=== PATIENT | female | born 1990 | race Caucasian/White ===

== ENCOUNTER 2016-11-20 08:58 | Emergency (ER) | payer MEDICAID, SELFPAY ==
--- NOTE | 2016-11-20 09:13 | OBHP ---
Datetime: 11/20/2016 09:11 IP Adm Impression: , intrauterine Admit Comment, IP Provider: at 23weeks came with c/o abdominnal pain started yesterday night, n o pain now, no dysuria obhx 1 x sab pmh de med pnv all nkd psh de soch den ve closed a/p at 24weeks r/o uti ua cont leidy and efm cont close observ Pelvic Type - PN: Adequate Extremities - PN: Normal Abdomen - PN: Normal Back - PN: Normal Breast - PN: Normal Lungs - PN: Normal Heart - PN: Normal Thyroid - PN: Normal Neurologic - PN: Normal HEENT - PN: Normal General - PN: Normal FHR - Baseline A Provider: 140 Contraction Comments Provider: none Vital Signs Provider: Reviewed; Within Normal Limits IP Chief Complaint: Maternal discomfort NICHD Variability Prov Fetus A: Moderate 6-25bpm Dilatation, Provider: 0 Effacement, Provider: 0 Station, Provider: -3 Genitourinary Exam: Normal DTRs - PN: Normal
[2016-11-20 09:14] VITALS: BMI 26.3
[2016-11-20 09:48] LABS: RBC URINE < 1 /hpf (0-3); URINE BILIRUBIN NEGATIVE (NEGATIVE); URINE BLOOD NEGATIVE (NEGATIVE); URINE COLOR Yellow (YELLOW); URINE GLUCOSE (UA) NORMAL (Normal); URINE KETONE NEGATIVE (NEGATIVE); URINE LEUKOCYTE ESTERASE NEG Leu/uL (Negative); URINE PROTEIN NEGATIVE (NEGATIVE); URINE UROBILINOGEN NORMAL mg/dL (0.2-1.0); WBC URINE 1 /hpf (0-5)
--- NOTE | 2016-11-20 10:31 | OBDCSUM ---
Datetime: 11/20/2016 10:30 Discharged to, Provider: Home Follow up at, Provider: as schuled Follow up in weeks, Provider: clinic Discharge Comment, Provider: dc home ptl given po hyration f/u in clinic as schuled Discharge Diagnosis Prov Other: 24weeks
--- NOTE | 2016-11-20 10:32 | OBHP ---
Datetime: 11/20/2016 09:11 Admit Comment, IP Provider: at 23weeks came with c/o abdominnal pain started yesterday night, n o pain now, no dysuria obhx 1 x sab pmh de med pnv all nkd psh de soch den ve closed a/p at 24weeks r/o uti ua cont leidy and efm cont close observ pt was seen at bed side.feels ok ua neg plan dc home ptl given po hyration f/u in clinic as schuled
== END 2016-11-20 10:37 | disposition home or self-care (01) ==
LOC: C.EROB 08:58
DX: O26.892 Other specified pregnancy related conditions, second trimester (principal); R10.9 Unspecified abdominal pain; Z3A.23 23 weeks gestation of pregnancy

== ENCOUNTER 2017-02-18 09:30 | Emergency (ER) | payer MEDICAID, OTHER ==
--- NOTE | 2017-02-19 12:40 | OBHP ---
Datetime: 02/18/2017 23:04 IP Adm Impression: Term, intrauterine ; No Active Labor; Intact Membranes IP Admit Plan: Discharge home Admit Comment, IP Provider: 26 y.o. LMP 05/24/16, JOSE RAFAEL 02/28/17, EGA 38w 5d c/o LLQ pain, onset 2029 ho urs 02/17/17, pain scale 3/10; pain now 10 - came in for evaluation. (+) AFM; denies LOF, VB. Prena shilpi care: [facility]; GBS (+); no other issues P Ob: 2016, Spont ab at approx 2 months. 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 No h/o STIs PMH: denies PSH: D_C NKDA Meds: drinking ensure TID since early , due to inability to tolerate PNV Soc Hx: denies tobacco, illicit drug or EtOH use. x 2 years. Unemployed. Lives with herbert reed Fam Hx: Mother alive 58 y.o. HTN, DM.. Father alive 45 y.o. no med issues No fam h/o Cancer P.E.: as above. WD in NAD. Awake, alert, oriented to time, person and place. Pleasant and coopera tive Assessment: 26 yo P0010, 38w 4d false labor. Category 1 traicng. Clinically stable. Plan: 1) discharge home 2) reviewed S/S labor 3) Keep next scheduled clinic appointment, 02/24/17 Pelvic Type - PN: Adequate Extremities - PN: Normal Abdomen - PN: Normal Back - PN: Normal Breast - PN: Not Done Lungs - PN: Normal Heart - PN: Normal Thyroid - PN: Not Done Neurologic - PN: Normal HEENT - PN: Normal General - PN: Normal Presentation-Admit: Vertex FHR - Baseline A Provider: 145 Membranes, Provider: Intact Contraction Comments Provider: sporadic Comments, ACOG Physical Exam: Abdomen: Soft. non tender in all quadrants. Gravid. Fundal heigh 38 cm All other systems reviewed and are negative Gestation - Est Wks by US: 38w 4d IP Hx Assessment: The History has been Reviewed and is Current EGA AdmitDate IP: 38.4 Vital Signs Provider: Reviewed IP Chief Complaint: Maternal discomfort NICHD Variability Prov Fetus A: Moderate 6-25bpm NICHD Accel Fetus A IP Provider: 15X15 NICHD Decel Fetus A IP Provider: None Dilatation, Provider: 1-2 Effacement, Provider: 20 Station, Provider: -3 Genitourinary Exam: Normal DTRs - PN: Not Done
[2017-02-19 16:41] VITALS: BP 107/66; PULSE 89; TEMP 98; O2SAT 98
== END 2017-02-18 10:10 | disposition home or self-care (01) ==
LOC: C.EROB 09:30
DX: O47.1 False labor at or after 37 completed weeks of gestation (principal); Z3A.38 38 weeks gestation of pregnancy

== ENCOUNTER 2017-03-08 07:35 | Inpatient (IN) | payer OTHER ==
[2017-03-08] MEDS ORDERED: Penicillin G 5 Million Unit Vial IVPB ONE (18:06)
[2017-03-08] MEDS ORDERED: Lactated Ringer's 1,000 ML IV SCH (18:15)
[2017-03-08 18:40] LABS: BASO % 0.3 % (0.0-2.0); EOS # 0.1 K/uL (0.0-0.7); EOS % 0.7 % (0.0-4.0); HEMATOCRIT 32.2 % (34.0-47.0); LYMPH # 1.9 K/uL (1.0-4.3); LYMPH % 20.1 % (20.0-40.0); MEAN CELL VOLUME 86.4 fL (81.0-99.0); MEAN CORPUSCULAR HEMOGLOBIN 27.9 pg (27.0-31.0); MEAN CORPUSCULAR HGB CONC 32.3 g/dL (33.0-37.0); MEAN PLATELET VOLUME 8.6 fL (7.2-11.7); MONO # 0.7 K/uL (0.0-0.8); MONO % 7.6 % (0.0-10.0); NRBC % 0.1 % (0.0-2.0); RED CELL DISTRIBUTION WIDTH 15.9 % (11.5-14.5); WHITE BLOOD COUNT 9.6 K/uL (4.8-10.8)
[2017-03-08 18:51] LABS: URINE BACTERIA RARE (<OCC); URINE BILIRUBIN NEGATIVE (NEGATIVE); URINE BLOOD NEGATIVE (NEGATIVE); URINE COLOR Colorless (YELLOW); URINE GLUCOSE (UA) NORMAL (Normal); URINE KETONE NEGATIVE (NEGATIVE); URINE LEUKOCYTE ESTERASE NEG Leu/uL (Negative); URINE PROTEIN NEGATIVE (NEGATIVE); URINE UROBILINOGEN NORMAL mg/dL (0.2-1.0); WBC URINE 1 /hpf (0-5)
--- NOTE | 2017-03-08 19:11 | OBADHP ---
Datetime: 03/08/2017 18:33 IP Admit Plan Other: Cervical ripening; GBS positive Admit Comment, IP Provider: Patient is a 26 year old at 41 weeks and 1 day by LMP 05/24/2016 with JOSE RAFAEL 02/28/2017, who presents today for induction of labor. Patient denies contraction, leakage of fluids, vaginal bleeding/abnormal vaginal discharge and urinary symptoms. Endorse (+) movement . Patient has no complaints at this time. 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 Lives with her and is a house wif e Family Hx: Mother: HTN and DM; age 53; Father age 41 healthy. Denies history of cancer, stroke or cardiac events P.E: See above A/P: 26 year old at 41 weeks 1 day presents for induction of labor secondary to post dates 1. Stable, afebrile 2. Admit to L _ D 3. Admission Labs: CBC, CMP, Type and screen, RPR, UA 4. Lactate ringers at 125mls/hr 5. NPO 6. GBS (+): Pen G 5mu IV once. Pen G 2.5 mu IV q4 until delivery 7. Cervical ripening agent: Cytotec 50mcg PO Q4 8. Continuous external monitoring and toco 9. Epidural upon request 11. Varicella non-immune: will need varivax vaccine post- 12. Anticipate vaginal delivery 11. Plan discuss with attending Kristy Alejandre, PGY-1 Attending attestation - Patient seen, evaluated and examined with me by the Resident. I agree with the H_P, assessment and plan. Category 1 tracing. Clarification re: care = [facility]; no issues. It was d iscussed with patient cervical ripening, and possible pitocin as indicated. Patient inquired about ep idural: risks, benefits discussed - patient will consider. Patient offered no other questions. Clin ically stable. FHR - Baseline A Provider: 160 Contraction Comments Provider: irregular Comments, ACOG Physical Exam: Vital Signs: 108/51 74 Gen: NAD, AA0X3 Cardio: RRR, Normal +S1, S2, No murmurs Lungs: CTA bilaterally, no rales, no crackles Abdomen: Soft, gravid, fundal height at 42cm Extremities: No clubbing, cyanosis or edema SVE: /-3 Labs A positive Rubella immune RPR: Non-reactive Varicella: Non-immune GC/CT: Negative Hep BSAg: Negative HIV: Non-reactive 1HR GCT: 113 GBS: + Imaging: Last ultrasound (01/04/17): Single IUP. Placenta posterior, cephalic presentation. ALEXANDRO: 15CM. EFW: 4LBS 1OZ Vital Signs Provider: Reviewed; Within Normal Limits IP Chief Complaint: Scheduled induction of labor NICHD Variability Prov Fetus A: Moderate 6-25bpm NICHD Accel Fetus A IP Provider: 15X15 NICHD Decel Fetus A IP Provider: None Dilatation, Provider: 2 Effacement, Provider: 30 Station, Provider: -3 EGA AdmitDate IP: 41.1 IP Adm Impression: Postterm, intrauterine ; No Active Labor IP Admit Plan: Admit to unit Datetime: 02/18/2017 23:04 Pelvic Type - PN: Adequate Extremities - PN: Normal Abdomen - PN: Normal Back - PN: Normal Breast - PN: Not Done Lungs - PN: Normal Heart - PN: Normal Thyroid - PN: Not Done Neurologic - PN: Normal HEENT - PN: Normal General - PN: Normal Presentation-Admit: Vertex Membranes, Provider: Intact Gestation - Est Wks by US: 38w 4d IP Hx Assessment: The History has been Reviewed and is Current Genitourinary Exam: Normal DTRs - PN: Not Done
[2017-03-08 21:44] LABS: CHLORIDE 109 mmol/L (98-107)
[2017-03-08 21:45] LABS: SODIUM 139 mmol/L (132-148)
[2017-03-08 21:47] LABS: BILIRUBIN,TOTAL 0.4 mg/dL (0.2-1.3); CARBON DIOXIDE 22 mmol/L (22-30); GFR AFRICAN-AMERICAN > 60
[2017-03-08 21:48] LABS: ALKALINE PHOSPHATASE 154 U/L (38-126); ALT/SGPT 19 U/L (9-52); AST/SGOT 17 U/L (14-36); BLOOD UREA NITROGEN 8 mg/dL (7-17); GLUCOSE,RANDOM 97 mg/dL (65-105); TOTAL PROTEIN 6.2 g/dL (6.3-8.3)
--- NOTE | 2017-03-08 23:09 | OBPN ---
Datetime: 03/08/2017 22:48 Membranes, Provider: Intact Contraction Comments Provider: infrequent FHR - Baseline A Provider: 150 Gestation - Est Wks by US: 41w 1d IP Progress Note Comment: FHR tracing noted for change in baseline to 180 bpm since approximately 19 35 hours. Intrauterine resuscitationmeasures implemented: IVFs, lateral positioning of mother and oxy gen by face mask. After approximately 2 hours, FHR returned to 150 bpm: observed x 45 minutes. At th is time, decision made to proceed with mechanical cervical ripening using the Carbonated Content intracervical ripe marielos balloon. Same inserted under sterile conditions and without incident Assessment: 28 y.o. P1011, 41w 1d, IOL. tachycardia versus recurrent prolonged accelerations resolved. GBS (+); will start penicillin when balloon falls (usually at apporximately 4 cm). Also, will start pitocin at time of balloon falling out. Patient is clinically stable Plan: 1) As above. 2) Anticipate vaginal delivery NICHD Accel Fetus A IP Provider: 15X15 FHR Category Provider Fetus A: Category I NICHD Variability Prov Fetus A: Moderate 6-25bpm Dilatation, Provider: 2 Effacement, Provider: 30 Station, Provider: -3 NICHD Decel Fetus A IP Provider: None Datetime: 03/08/2017 18:33 Vital Signs Provider: Reviewed; Within Normal Limits Datetime: 02/18/2017 23:04 Presentation-Admit: Vertex
[2017-03-09] MEDS ORDERED: Oxytocin 30 UNIT 30 UNITS/500 ML BAG IV PRN (00:18)
[2017-03-09] MEDS ORDERED: Oxytocin 30 UNIT 30 UNITS/500 ML BAG IV ONE (01:14)
[2017-03-09] MEDS ORDERED: Penicillin G 5 Million Unit Vial IVPB ONE (06:26)
--- NOTE | 2017-03-09 08:26 | OBPN ---
Datetime: 03/09/2017 08:21 IP Progress Impression: Reassuring heart rate IP Progress Plan: Continue present management Contraction Comments Provider: irregular Gestation - Est Wks by US: 41.2 Weight - Estimated: 3200 IP Progress Note Comment: S-patient states that she is feeling the contractions but they are tolerab le O-VSS Afebrl FHT cat1 [place] irregular ctx sve 5/80/-2 A/P Patient being induced forpostdates.GBS positive -continue pit per protocol -monitor closely Vital Signs Provider: Reviewed FHR Category Provider Fetus A: Category I Dilatation, Provider: 5 Effacement, Provider: 80 Station, Provider: -2
[2017-03-09] MEDS ORDERED: Bupivacaine 0.25% Inj(30mL) ONE (08:56)
[2017-03-09] MEDS ORDERED: Bupivacaine 0.125%/FentaNYL 200 ML EPI ONE (08:56)
--- NOTE | 2017-03-09 11:59 | OBPN ---
Datetime: 03/09/2017 11:56 IP Procedures: Artificial ROM; Scalp Electrode IP Progress Plan: Continue present management Contraction Comments Provider: irregular FHR - Baseline A Provider: 150 IP Progress Note Comment: S-patient comfortable with epidural FHT 150s, mod enrique, ovv variables [place] irregular ctx sve 9/100/-2 A/P Patient being induced for post dates -arom done.clear fluid -continue to monitor closel Vital Signs Provider: Reviewed; Within Normal Limits NICHD Accel Fetus A IP Provider: 15X15 NICHD Variability Prov Fetus A: Moderate 6-25bpm Dilatation, Provider: 9 Effacement, Provider: 100 Station, Provider: -2 NICHD Decel Fetus A IP Provider: Variable
[2017-03-09] MEDS ORDERED: Lidocaine 2% Inj (20ml) ONE (12:25)
[2017-03-09] MEDS ORDERED: Dextrose 5%/Lactated Ringer's 1,000 ML IV SCH (15:00)
[2017-03-09] MEDS ORDERED: Benzocaine/Menthol 20%-0.5% Topical Spray (60 ml) TOP PRN (15:46)
[2017-03-09] MEDS ORDERED: Oxycodone/Acetaminophen 5/325 mg Tab PO PRN ×2 (15:47→15:48)
--- NOTE | 2017-03-09 16:03 | OBDS ---
DELIVERY PERSONNEL Delivery Doctor: Nikkie Pittman MD Track Laborer: Edna Monae RN/Cedrick BREEN Anesthesiologist: Resident: Donna Wilde PGY1 MATERNAL INFORMATION Delivery Anesthesia: Epidural Medications in Delivery: Pitocin 20 units IV; Lidocain 2% Estimated Blood Loss (ml): 300 Placenta Cultured: No Maternal Complications: None RN Comments: Liveborn Baby Girl. 9-9 Provider Comments: Patient psuhing.Median episiotomy given. of a female from CHELSIE position. Body and shoulders delivered without difficulty.Cord clamped and cut.Cord blood collected.Placenta s pontaneously delivered.Episiotomy repiared with 2-0 chromic.PatIent stable.Fundus firm.EBL 300CC. Apgars 9/9 at 1 and 5min of life LABOR SUMMARY EDC: 02/28/2017 00:00 No. Babies in Womb: 1 Attempted: Yes Labor Anesthesia: Epidural LABOR INFORMATION Reason for Induction: Postterm Onset of Labor: 03/09/2017 07:30 Complete Dilatation: 03/09/2017 13:49 Cervical Ripening Agents: Muñoz Balloon Oxytocin: Induction Group B Beta Strep: Positive Antibiotics # of Doses: 3 Antibiotics Time of Last Dose: Pen G 2.5 MU IV@ 1350 Steroids Given: None Reason Steroids Not Administered: Not Applicable MEMBRANES Membranes Rupture Method: Artificial Rupture of Membranes: 03/09/2017 11:54 Length of Rupture (hrs): 3.68 Amniotic Fluid Color: Clear Amniotic Fluid Amount: Moderate Amniotic Fluid Odor: Normal STAGES OF LABOR Stage 1 hrs: 6 Stage 1 min: 19 Stage 2 hrs: 1 Stage 2 min: 46 Stage 3 hrs: 0 Stage 3 min: 15 Total Time in Labor hrs: 8 Total Time in Labor min: 20 VAGINAL DELIVERY Episiotomy: Median Laceration Extension: N/A Laceration Type: None Laceration Repair: Yes Initial Vag Sponge Count: 10 Initial Vag Sharps Count: 2 Sponge Count Correct: Yes; Vaginal Sweep Performed Sharps Count Correct: Yes Count Comment: with 1 needle for drawing BABY A INFORMATION Infant Delivery Date/Time: 03/09/2017 15:35 Method of Delivery: Vaginal Born in Route : No : N/A Forceps: N/A Vacuum Extraction: N/A Shoulder Dystocia : No SHOULDER DYSTOCIA BABY A Infant Delivery Date/Time: 03/09/2017 15:35 PRESENTATION/POSITION BABY A Presentation: Cephalic Cephalic Presentation: Vertex Vertex Position: Left Occipital Anterior Breech Presentation: N/A PLACENTA INFORMATION BABY A Placenta Delivery Time : 03/09/2017 15:50 Placenta Method of Delivery: Spontaneous Placenta Status: Delivered SCORES BABY A Heart Rate 1 min: >100 bpm Resp Effort 1 min: Good Cry Reflex Irritability 1 min: Cough or Sneeze or Pulls Away Muscle Tone 1 min: Active Motion Color 1 min: Body [place], Extremities Blue Resuscitation Effort 1 min: N/A SCORE 1 MIN: 9 Heart Rate 5 min: >100 bpm Resp Effort 5 min: Good Cry Reflex Irritability 5 min: Cough or Sneeze or Pulls Away Muscle Tone 5 min: Active Motion Color 5 min: Body [place], Extremities Blue Resuscitation Effort 5 min: N/A SCORE 5 MIN: 9 INFORMATION BABY A Gestational Age at Delivery: 41.2 Gestational Status: Post-term Outcome : Liveborn Condition : Stable Infant Sex: Female IDENTIFICATION/MEDS BABY A ID Band Number: [id number] Sensor Number: [id number] WEIGHT/LENGTH BABY A Infant Birthweight (gms): 3790 Infant Weight (lb): 8 Infant Weight (oz): 6 Length Inches: 20.00 Length cms: 50.8 CORD INFORMATION BABY A No. Cord Vessels: 3 Nuchal Cord : N/A Cord Blood Taken: Yes Suction: Mouth; Nose ASSESSMENT BABY A Complications: None Physical Findings at Delivery: Molding of the Head Respirations: Appears Normal Identification Clerk/ALS Called : No Care By: Transferred To: Nursery
[2017-03-10 08:12] LABS: BASO % 0.2 % (0.0-2.0); EOS % 0.3 % (0.0-4.0); HEMATOCRIT 26.5 % (34.0-47.0); LYMPH # 1.9 K/uL (1.0-4.3); LYMPH % 11.7 % (20.0-40.0); MEAN CELL VOLUME 86.6 fL (81.0-99.0); MEAN CORPUSCULAR HEMOGLOBIN 28.5 pg (27.0-31.0); MEAN CORPUSCULAR HGB CONC 32.9 g/dL (33.0-37.0); MEAN PLATELET VOLUME 8.8 fL (7.2-11.7); MONO # 1.4 K/uL (0.0-0.8); MONO % 8.4 % (0.0-10.0); RED CELL DISTRIBUTION WIDTH 15.8 % (11.5-14.5); WHITE BLOOD COUNT 16.2 K/uL (4.8-10.8)
--- NOTE | 2017-03-10 09:32 | OBPPN ---
Datetime: 03/10/2017 07:48 PP Pain Prov: Within normal limits PP Nausea Prov: Denies PP Flatus Prov: Yes PP BM Prov: Yes PP Abdomen/Uterus Prov: Normal PP Lochia Prov: Normal PP Extremities Prov: Normal PP Comments Phys Exam Prov: fudus below umblicus ext no edema,no calf ten PP Impression Prov: Normal progression PP Plan Prov: Continue present management PP Progress Note Prov: Patient was seen and examined at bedside. As per nursing, patient had no acut e issues overnight. Patient reports that she is doing well and pain is well-controlled. Patient is am bulating and tolerating diet. Patient reports moderate lochia, BM and urinating without difficulty. P atient denies fever, chills, nausea, vomiting, headache, chest pain, SOB, palpitations, dizziness, li ghtheadness and calf tenderness. Patient is breast and bottle feeding. Vital Signs: T: 97.1, BP: 99/69, HR: 81, RR: 18, O2: 99% RA Physical Examination: Gen: NAD, AAOX3 Cardio: RRR, normal S1, S2 Lungs: CTA bilaterally, no rales, no crackles Abd: Soft, appropriately tender, fundus firm at umbilicus Ext: No edema, clubbing or cyanosis. No calf tenderness Labs: 16.2>8.7/26.5>240 F/U am CBC A positive, Rubella immune A/P: 26 yo at 41w2d S/P with median episiotomy PPD # 1 1. Stable, Afebrile 2. Pain control prn 3. F/u AM CBC 4. Encourage ambulation and hydration 5. Encourage breast feeding 6. Continue routine care 7. Anticipate discharge tomorrow 8. Plan discussed with attending Donna Wilde DO PGY-1 Attending note. agrees with above Vital Signs Provider PP: Reviewed; Within Normal Limits
[2017-03-11 17:45] VITALS: BP 112/70; PULSE 72; RESP 18; TEMP 97.2; O2SAT 98
--- NOTE | 2017-03-11 23:07 | OBDCSUM ---
Datetime: 03/11/2017 10:28 Discharge Diagnosis Prov Other: Discharge Diagnosis: S/P Anemia - chronic
--- NOTE | 2017-03-11 23:07 | OBPPN ---
Datetime: 03/11/2017 20:33 PP Progress Note Prov: Patient was seen and examined at bedside at approx 0700 hours. As per nursing , patient had no acute issues overnight. Patient reports that she is doing well and pain is well-cont rolled. Patient is ambulating and tolerating diet. Patient reports very light lochia, and urinating without difficulty. Patient denies fever, chills, nausea, vomiting, headache, chest pain, SOB, palpit ations, dizziness, lightheadness and calf tenderness. Patient is breast and bottle feeding. Patient h as no complaints. Vital Signs: T: 97.2, BP: 112/70, HR: 72 Physical Examination: Gen: NAD, AAOX3 Cardio: RRR, normal S1, S2 Lungs: CTA bilaterally, no rales, no crackles Abd: Soft, appropriately tender, fundus firm slightly above the umbilicus Ext: No edema, clubbing or cyanosis. No calf tenderness Labs: 9.6>10.4/32.2<276 16.2>8.7/26.5>240 A positive, Rubella immune A/P: 26 yo at 41w2d S/P with median episiotomy PPD # 2 1. Stable, Afebrile 2. Pain is well-controlled 3. Encourage ambulation and hydration 4. Encourage breast feeding 5. Continue routine care 6. Continue ferrous sulfate 325mg PO BID 6. Discharge today - pelvic rest x 6 weeks, tylenol/motrin prn pain, f/u with clinic in 6 weeks 7. Plan discussed with attending Donna Wilde DO PGY-1 Attending Attesation 0945 hours - patient seen, and evaluated by me with Resident. I agree with the above progress note, assessme nt and plan. Patient interested in oral contraceptives for contraception. Anemia noted; advised to supplement with iron. Clinically stable. Plan: 1) As above. 2) Discharge erna 3) See full discharge instructions
== END 2017-03-11 13:43 | disposition home or self-care (01) | DRG 373 ==
LOC: C.4D 17:40 → C.4M 03-09 17:58
PROVIDERS: ADMIT Obstetrics & Gynecology; ATTEND Obstetrics & Gynecology
PROC: 10E0XZZ Delivery of Products of Conception, External Approach (ICD-10-PCS; principal; 2017-03-09)
PROC: 0W8NXZZ Division of Female Perineum, External Approach (ICD-10-PCS; 2017-03-09)
PROC: 10907ZC Drainage of Amniotic Fluid, Therapeutic from Products of Conception, Via Natural or Artificial Opening (ICD-10-PCS; 2017-03-09)
DX: O48.0 Post-term pregnancy (principal); D64.9 Anemia, unspecified; O99.02 Anemia complicating childbirth; Z37.0 Single live birth; O99.824 Streptococcus B carrier state complicating childbirth; Z3A.41 41 weeks gestation of pregnancy

== ENCOUNTER 2017-05-08 10:55 | Emergency (ER) | payer OTHER ==
[2017-05-08 10:55] VITALS: BMI 26.3
[2017-05-08 11:06] VITALS: RESP 16; O2SAT 99
[2017-05-08 11:34] LABS: RBC URINE < 1 /hpf (0-3); URINE BILIRUBIN NEGATIVE (NEGATIVE); URINE BLOOD NEGATIVE (NEGATIVE); URINE COLOR Yellow (YELLOW); URINE GLUCOSE (UA) NORMAL (Normal); URINE KETONE NEGATIVE (NEGATIVE); URINE LEUKOCYTE ESTERASE NEG Leu/uL (Negative); URINE PROTEIN NEGATIVE (NEGATIVE); URINE UROBILINOGEN NORMAL mg/dL (0.2-1.0); WBC URINE 2 /hpf (0-5)
--- NOTE | 2017-05-08 12:16 | C.PDOC ---
History Of Present Illness 26 year old female presents to the ED for evaluation of upper abdominal pain ( right>left) which began around 2 weeks ago. Patient also notes occasional, intermittent lower back pain. Patient has not taken any medicine to manage her symptoms. Contrary to triage, patient denies lower abdominal pain as well as fever, chills, nausea, vomiting, vaginal discharge/bleeding, dysuria, hematuria , or past history of gallstones at this time. Time Seen by Provider: 05/08/17 11:51 Chief Complaint (Nursing): Abdominal Pain History Per: Patient History/Exam Limitations: no limitations Onset/Duration Of Symptoms: Intermittent Episodes, Other (2 weeks ) Current Symptoms Are (Timing): Still Present Location Of Pain/Discomfort: RUQ, LUQ Radiation Of Pain To:: Back (lower ) Quality Of Discomfort: "Pain" Associated Symptoms: Back Pain (lower ). denies: Fever, Chills, Nausea, Vomiting, Urinary Symptoms Additional History Per: Patient Abnormal Vaginal Bleeding: No Past Medical History Reviewed: Historical Data, Nursing Documentation, Vital Signs Vital Signs: Last Vital Signs Temp 97.9 F 05/08/17 14:30 Pulse 70 05/08/17 14:30 Resp 16 05/08/17 14:30 BP 99/65 L 05/08/17 14:30 Pulse Ox 99 05/08/17 16:06 - Medical History PMH: No Chronic Diseases Surgical History: No Surg Hx - [facility] Procedures DELIVERY OF PRODUCTS OF CONCEPTION, EXTERNAL APPROACH (03/08/17) DIVISION OF FEMALE PERINEUM, EXTERNAL APPROACH (03/08/17) DRAINAGE OF AMNIOTIC FL, THERAP FROM POC, VIA OPENING (03/08/17) Family History: States: Unknown Family Hx - Social History Hx Alcohol Use: No Hx Substance Use: No - Immunization History Hx Tetanus Toxoid Vaccination: No Hx Influenza Vaccination: No Hx Pneumococcal Vaccination: No Review Of Systems Constitutional: Negative for: Fever, Chills Gastrointestinal: Positive for: Abdominal Pain (upper, right>left). Negative for: Nausea, Vomiting, Other (lower abdominal pain ) Genitourinary: Negative for: Dysuria, Hematuria, Vaginal Discharge, Vaginal Bleeding Musculoskeletal: Positive for: Back Pain (lower) Physical Exam - Physical Exam Appears: Non-toxic, No Acute Distress Skin: Normal Color, Warm, Dry Head: Atraumatic, Normacephalic Eye(s): bilateral: Normal Inspection Oral Mucosa: Moist Neck: Supple Chest: Symmetrical, No Deformity, No Tenderness Cardiovascular: Rhythm Regular, No Murmur Respiratory: Normal Breath Sounds, No Rales, No Rhonchi, No Wheezing Gastrointestinal/Abdominal: Soft, Tenderness (epigastric and right upper quadrant ), No Guarding, No Rebound, No Other (lower abdominal tenderness ) Back: No CVA Tenderness Extremity: Normal ROM, Capillary Refill (less than 2 seconds ) Neurological/Psych: Oriented x3, Normal Speech, Normal Cognition Gait: Steady ED Course And Treatment - Laboratory Results Result Diagrams: 05/08/17 12:58 05/08/17 12:58 O2 Sat by Pulse Oximetry: 99 (on RA) Pulse Ox Interpretation: Normal - CT Scan/US abdomen US Other Rad Studies (CT/US): Interpreted By Me, Read By Radiologist, Radiology Report Reviewed CT/US Interpretation: HISTORY: Right upper quadrant. COMPARISON: None. TECHNIQUE: Grayscale imaging was performed. FINDINGS: LIVER: Measures pain 15.1 cm in length. There is diffuse increased echogenicity of the liver parenchyma. No mass. No intrahepatic bile duct dilatation. GALLBLADDER: There are multiple gallstones without wall thickening or pericholecystic fluid. The sonographic Godwin's sign is negative. COMMON BILE DUCT: Measures 3.3 mm. No stones. No dilatation. PANCREAS: Unremarkable as visualized. No mass. No ductal dilatation. RIGHT KIDNEY: Measures 10.6 cm in length. Normal echogenicity. No calculus, mass, or hydronephrosis. AORTA: No aneurysmal dilatation. IVC: Unremarkable. OTHER FINDINGS: None . IMPRESSION: Cholelithiasis. No evidence of acute cholecystitis or biliary dilatation. Diffuse increased echogenicity in the liver may reflect hepatic steatosis however parenchymal infectious/ inflammatory etiologies cannot be entirely excluded. Clinical and laboratory correlation is advised. . Progress Note: Bloodwork, UA, Right Upper Quadrant US ordered and reviewed. Tylenol PO administered. On reassessment, patient is resting comfortably, showing no signs of distress and reports her symptoms have resolved. Patient is stable for discharge and is advised to follow up with her PMD within 1-2 days and/or return to the ED if symptoms return or worsen. Reassessment Condition: Improved (On re-evaluation pt states back and abd pain completely resolved. Denies dizziness, chest pain, sob. 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 AVOID GREASY FOOD/FLUIDS. LOW FAT DIET RECOMMENDED. IF SYMPTOMS GET WORSE OR ANY NEW CONCERNING SYMPTOMS DEVELOP RETURN TO ED. Instructions: Biliary Colic (ED) Forms: [employer] (Nepali) - Clinical Impression Clinical Impression: Biliary colic, Abnormal liver scan - PA / RESPIRATORY THERAPIST / Resident Statement MD/DO has reviewed & agrees with the documentation as recorded. - Scribe Statement The provider has reviewed the documentation as recorded by the Scribe (Elvia Martins) All medical record entries made by the Scribe were at my direction and personally dictated by me. I have reviewed the chart and agree that the record accurately reflects my personal performance of the history, physical exam, medical decision making, and the department course for this patient. I have also personally directed, reviewed, and agree with the discharge instructions and disposition. Decision To Admit - Pt Status Changed To: Hospital Disposition Of: Inpatient - Admit Certification Admit to Inpatient:: After my assessment, the patient will require hospitalization for at least two midnights. This is because of the severity of symptoms shown, intensity of services needed, and/or the medical risk in this patient being treated as an outpatient. - InPatient: Physician Admission Certification:: pt with acute appendicitis and syncope - . Bed Request Type: Regular Admitting Physician: Lasha Yanez Patient Diagnosis: Biliary colic, Abnormal liver scan
[2017-05-08 13:18] LABS: BASO % 0.5 % (0.0-2.0); EOS # 0.1 K/uL (0.0-0.7); EOS % 1.4 % (0.0-4.0); HEMATOCRIT 34.8 % (34.0-47.0); LYMPH # 2.5 K/uL (1.0-4.3); LYMPH % 33.2 % (20.0-40.0); MEAN CELL VOLUME 86.6 fL (81.0-99.0); MEAN CORPUSCULAR HEMOGLOBIN 28.3 pg (27.0-31.0); MEAN CORPUSCULAR HGB CONC 32.7 g/dL (33.0-37.0); MEAN PLATELET VOLUME 8.5 fL (7.2-11.7); MONO # 0.5 K/uL (0.0-0.8); MONO % 7.1 % (0.0-10.0); RED CELL DISTRIBUTION WIDTH 14.9 % (11.5-14.5)
[2017-05-08 13:19] LABS: CHLORIDE 104 mmol/L (98-107)
[2017-05-08 13:20] LABS: SODIUM 135 mmol/L (132-148); WHITE BLOOD COUNT 7.4 K/uL (4.8-10.8)
[2017-05-08 13:22] LABS: ALB/GLOB RATIO 1.4 (1.0-2.1); ALKALINE PHOSPHATASE 69 U/L (38-126); AST/SGOT 18 U/L (14-36); BILIRUBIN,TOTAL 0.9 mg/dL (0.2-1.3); BLOOD UREA NITROGEN 12 mg/dL (7-17); CARBON DIOXIDE 22 mmol/L (22-30); GFR AFRICAN-AMERICAN > 60; GLUCOSE,RANDOM 85 mg/dL (65-105); TOTAL PROTEIN 6.8 g/dL (6.3-8.3)
[2017-05-08 13:23] LABS: ALT/SGPT 35 U/L (9-52); CALCIUM 8.5 mg/dl (8.6-10.4)
--- NOTE | 2017-05-08 13:40 | US ---
HISTORY: Right upper quadrant COMPARISON: None. TECHNIQUE: Grayscale imaging was performed. FINDINGS: LIVER: Measures pain 15.1 cm in length. There is diffuse increased echogenicity of the liver parenchyma. No mass. No intrahepatic bile duct dilatation. GALLBLADDER: There are multiple gallstones without wall thickening or pericholecystic fluid. The sonographic Godwin's sign is negative. COMMON BILE DUCT: Measures 3.3 mm. No stones. No dilatation. PANCREAS: Unremarkable as visualized. No mass. No ductal dilatation. RIGHT KIDNEY: Measures 10.6 cm in length. Normal echogenicity. No calculus, mass, or hydronephrosis. AORTA: No aneurysmal dilatation. IVC: Unremarkable. OTHER FINDINGS: None . IMPRESSION: Cholelithiasis. No evidence of acute cholecystitis or biliary dilatation. Diffuse increased echogenicity in the liver may reflect hepatic steatosis however parenchymal infectious/ inflammatory etiologies cannot be entirely excluded. Clinical and laboratory correlation is advised. .
[2017-05-08 14:30] VITALS: BP 99/65; PULSE 70; TEMP 97.9
== END 2017-05-08 14:45 | disposition home or self-care (01) ==
LOC: C.ER 10:55
DX: K80.50 Calculus of bile duct without cholangitis or cholecystitis without obstruction (principal); R93.2 Abnormal findings on diagnostic imaging of liver and biliary tract

== ENCOUNTER 2017-07-24 10:03 | Emergency (ER) | payer OTHER ==
[2017-07-24 10:03] VITALS: BMI 26.3
[2017-07-24 10:15] VITALS: BP 108/67; PULSE 68; RESP 18; TEMP 97.9; O2SAT 100
--- NOTE | 2017-07-24 11:04 | C.PDOC ---
History Of Present Illness Pt c/o dry cracked skin on hands. Time Seen by Provider: 07/24/17 10:39 Chief Complaint (Nursing): Abnormal Skin Integrity History Per: Patient Onset/Duration Of Symptoms: Days (about 1 week) Current Symptoms Are (Timing): Still Present Location Of Injury: Right: Hand, Left: Hand Quality Of Symptoms: Itching Severity: Moderate Additional History Per: Prior Records Past Medical History Reviewed: Historical Data, Nursing Documentation, Vital Signs Vital Signs: Last Vital Signs Temp 97.9 F 07/24/17 10:14 Pulse 68 07/24/17 10:14 Resp 18 07/24/17 10:14 BP 108/67 07/24/17 10:14 Pulse Ox 100 07/24/17 10:14 - Medical History PMH: No Chronic Diseases - [facility] Procedures DELIVERY OF PRODUCTS OF CONCEPTION, EXTERNAL APPROACH (03/08/17) DIVISION OF FEMALE PERINEUM, EXTERNAL APPROACH (03/08/17) DRAINAGE OF AMNIOTIC FL, THERAP FROM POC, VIA OPENING (03/08/17) Family History: States: Unknown Family Hx - Social History Hx Alcohol Use: No Hx Substance Use: No - Immunization History Hx Tetanus Toxoid Vaccination: No Hx Influenza Vaccination: No Hx Pneumococcal Vaccination: No Review Of Systems Except As Marked, All Systems Reviewed And Found Negative. Constitutional: Negative for: Fever, Weakness ENT: Negative for: Mouth Pain, Mouth Swelling, Throat Pain, Throat Swelling Cardiovascular: Negative for: Chest Pain Respiratory: Negative for: Shortness of Breath Musculoskeletal: Negative for: Neck Pain Neurological: Negative for: Weakness, Numbness Physical Exam - Physical Exam Appears: Non-toxic, No Acute Distress Skin: Warm, Dry Head: Atraumatic, Normacephalic Eye(s): bilateral: Normal Inspection, PERRL, EOMI Neck: Normal ROM, Supple Extremity: Normal ROM, Other (dry, cracked sking on b/l hands/fingers.) Pulses: Left Radial: Normal, Right Radial: Normal Neurological/Psych: Oriented x3, Normal Motor, Normal Sensation ED Course And Treatment O2 Sat by Pulse Oximetry: 100 Pulse Ox Interpretation: Normal Disposition Counseled Patient/Family Regarding: Diagnosis, Need For Followup, Rx Given - Disposition Referrals: [facility] [Outside] Disposition: HOME/ ROUTINE Disposition Time: 11:05 Condition: STABLE Additional Instructions: Follow up in the clinic for further evaluation and treatment. Return to the ER if you develop fever, redness, swelling, pus drainage, worsening of symptoms or if you have any other concerns. Prescriptions: Mineral Oil/Hydrophil Petrolat [Aquaphor] 1 applic TP BID #1 oin Forms: General Discharge Instructions - Clinical Impression Clinical Impression: Cracked skin
== END 2017-07-24 11:18 | disposition home or self-care (01) ==
LOC: C.ER 10:03
DX: L98.8 Other specified disorders of the skin and subcutaneous tissue (principal)

== ENCOUNTER 2017-09-18 08:40 | Emergency (ER) | payer OTHER ==
[2017-09-18 08:40] VITALS: BMI 26.3
[2017-09-18 08:59] VITALS: BP 120/79; PULSE 90; RESP 18; TEMP 98.2; O2SAT 98
--- NOTE | 2017-09-18 09:08 | C.PDOC ---
History Of Present Illness 27yo female, presents to ED with complaints of nasal congestion for the past couple days. Of note, patient's daughter is also present in ER with similar symptoms. Patient denies any chest pain, shortness of breath, throat pain. No other complaints. Time Seen by Provider: 09/18/17 09:07 Chief Complaint (Nursing): Cough, Cold, Congestion History Per: Patient History/Exam Limitations: no limitations Onset/Duration Of Symptoms: Days Current Symptoms Are (Timing): Still Present Associated Symptoms: Nasal Congestion Additional History Per: Patient Past Medical History Reviewed: Historical Data, Nursing Documentation, Vital Signs Vital Signs: Last Vital Signs Temp 98.2 F 09/18/17 08:57 Pulse 90 09/18/17 08:57 Resp 18 09/18/17 08:57 BP 120/79 09/18/17 08:57 Pulse Ox 98 09/18/17 09:08 - Medical History PMH: No Chronic Diseases Denies: Depression, HTN Surgical History: No Surg Hx - [facility] Procedures DELIVERY OF PRODUCTS OF CONCEPTION, EXTERNAL APPROACH (03/08/17) DIVISION OF FEMALE PERINEUM, EXTERNAL APPROACH (03/08/17) DRAINAGE OF AMNIOTIC FL, THERAP FROM POC, VIA OPENING (03/08/17) Family History: States: Unknown Family Hx - Social History Hx Alcohol Use: No Hx Substance Use: No - Immunization History Hx Tetanus Toxoid Vaccination: No Hx Influenza Vaccination: No Hx Pneumococcal Vaccination: No Review Of Systems Except As Marked, All Systems Reviewed And Found Negative. Constitutional: Negative for: Fever, Chills ENT: Positive for: Nose Congestion. Negative for: Throat Pain Cardiovascular: Negative for: Chest Pain Respiratory: Negative for: Shortness of Breath Physical Exam - Physical Exam Appears: Non-toxic, No Acute Distress Skin: Warm, Dry Head: Normacephalic Eye(s): bilateral: Normal Inspection Nose: Normal Oral Mucosa: Moist Throat: Normal Neck: Supple Chest: Symmetrical Cardiovascular: Rhythm Regular Respiratory: Normal Breath Sounds ED Course And Treatment O2 Sat by Pulse Oximetry: 98 (RA) Pulse Ox Interpretation: Normal Medical Decision Making Medical Decision Making: mild viral syndrome normal exam Disposition Doctor Will See Patient In The: Office Counseled Patient/Family Regarding: Studies Performed, Diagnosis - Disposition Referrals: [facility] [Outside] Disposition: HOME/ ROUTINE Disposition Time: 09:07 Condition: GOOD Additional Instructions: continue dayquil/Nyquil or other OTC cold remedies Follow-up in our outpatient Family Practice Clinic as needed. Instructions: Viral Syndrome (DC) Forms: [employer] [facility] ([place]) - Clinical Impression Clinical Impression: Viral syndrome - Scribe Statement The provider has reviewed the documentation as recorded by the Scribe (Faye Thurston) Provider Attestation: All medical record entries made by the Scribe were at my direction and personally dictated by me. I have reviewed the chart and agree that the record accurately reflects my personal performance of the history, physical exam, medical decision making, and the department course for this patient. I have also personally directed, reviewed, and agree with the discharge instructions and disposition.
== END 2017-09-18 09:23 | disposition home or self-care (01) ==
LOC: C.ER 08:40
DX: B34.9 Viral infection, unspecified (principal)